=== PATIENT | male | born 2000 | race Two or more races ===

== ENCOUNTER 2023-04-07 09:09 | Emergency (ER) | payer OTHER ==
[~2023-04-07] VITALS: Ht 180.3 cm; Wt 86.2 kg
[2023-04-07 10:22] LABS: HEMATOCRIT 46.5 % (39.0-48.0); HEMOGLOBIN 15.7 g/dL (13-16.00); MEAN CORPUSCULAR HEMOGLOBIN 30.1 pg (27.00-32.0); MEAN CORPUSCULAR HGB CONC 33.9 g/dl (32.0-36.0); PLATELET COUNT 240 K/uL (150-450); RED BLOOD COUNT 5.22 M/uL (4.00-6.00); RED CELL DISTRIBUTION WIDTH 12.9 % (11.5-14.5)
[2023-04-07 10:54] LABS: CALCIUM 9.6 mg/dL (8.5-10.1); CREATININE SERUM 1.11 mg/dL (0.70-1.30); GFR 81.39; POTASSIUM 4.06 mEq/L (3.5-5.1)
[2023-04-07 11:12] LABS: PH,URINE 7.5 (5.0-8.0); URINE APPEARANCE Clear; URINE BILIRRUBIN Negative (NEGATIVE); URINE BLOOD Negative; URINE COLOR Yellow; URINE GLUCOSE Negative (NEGATIVE); URINE LEUKOCYTE Negative; URINE NITRATE Negative; URINE PROTEIN Trace (NEGATIVE)
[2023-04-07 11:17] LABS: URINE BACTERIA 6.2 uL (0.0-1933); URINE RBC 4.5 uL (0.0-20.8); URINE WBC 2.7 uL (0.0-23.2)
[2023-04-07 11:22] LABS: URINE EPITHELIAL CELLS 0.4 uL (0.0-38.8)
== END 2023-04-07 13:36 | disposition home or self-care (01) ==
LOC: ER 09:09
PROVIDERS: General Practice
DX: R11.10 Vomiting, unspecified (principal)